=== PATIENT | female | born 1970 | race Caucasian/White ===

== ENCOUNTER 2018-04-01 08:51 | Inpatient (IN) | payer OTHER ==
[~2018-04-01] VITALS: Ht 157.4 cm; Wt 54.5 kg
--- NOTE | ~2018-04-01 | CON ---
[place], [place] REPORT OF CONSULTATION NAME: GOMEZ HOFFMAN UNIT #: [id number] ROOM: 404 DOCTOR: MATHEUS PACHECO MD BIRTHDATE: [birth year] DOS: 04/02/2018 REASON FOR CONSULTATION: Near syncope. HISTORY OF PRESENT ILLNESS: The patient is a 47-year-old woman who was seen today 04/02/2018 at her bedside at [facility]. She presented overnight with a near syncopal episode. This is the second time that this is happening in a 2 year span. The first episode occurred when she got out of bed too fast. She felt lightheaded and was able to call to her who was able to catch her before she fell. She recovered quickly after that and did not have any further symptoms. She was otherwise well until this morning. 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 She states that the area was not particularly hot and she had had plenty of fluid earlier in the day, but had not eaten much. She began to feel sweaty and weak. She sat down and her symptoms did improve; however, because of her lightheadedness, she was sent to the hospital and admitted for further assessment. She denies ever truly losing consciousness, although she states that her vision did get dark before she sat down. She did not injure herself in either episode. She specifically denied any chest pain, palpitations, nausea or dyspnea associated with these episodes. The patient's only medication is an albuterol inhaler, which she uses on occasion for asthma. She denies the use of any [id number]-sus-ylaljqd medications supplements, etc. PAST MEDICAL HISTORY: Includes 1. Asthma. 2. Two episodes of near syncope in a 2 year span. MEDICATIONS PRIOR TO ADMISSION: Albuterol, which she uses p.r.n. ALLERGIES: She lists allergies to PENICILLIN, AMOXICILLIN, AUGMENTIN, all of which cause swelling. The AUGMENTIN caused anaphylaxis. PEANUTS cause anaphylaxis. REVIEW OF SYSTEMS: The patient denies diplopia or loss of vision. She did have the lightheaded spell prior to admission. She denies focal weakness. She denies nausea or vomiting. She denies fevers, chills or recent weight change. She denies any change in her appetite. She denies any hemoptysis or hematemesis. She denies any recent weight change. She denies change in her bowel or bladder habits. She denies blood in her stools or urine or from any other site. She denies heat or cold intolerance. She denies polyuria or polydipsia. She denies any peripheral edema or change in her exercise capacity. She denies skin rashes. Remainder of the review of systems is negative except as noted above. FAMILY HISTORY: The patient's parents are still alive. There is no family history of diabetes, hypertension or early coronary disease. SOCIAL HISTORY: The patient is and lives with her . 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 She denies cigarette abuse or alcohol use. PHYSICAL EXAMINATION: GENERAL: The patient is a slender white female who is awake, alert and oriented. VITAL SIGNS: Pulse is 57 and regular, blood pressure is 119/77. She is afebrile. She weighs 54.5 kg and has a body mass index of 22. HEENT: Normocephalic, atraumatic. Extraocular muscles are intact. Sclerae are clear. Pupils are equal, round and react to light. The oral mucosa is moist. Tongue is midline. NECK: Supple. She has no jugular distention. Carotids are full without bruits. She has no neck or supraclavicular masses. RESPIRATORY: Respirations are unlabored. Her chest is clear to auscultation and percussion. She has no presacral edema or chest wall tenderness. CARDIOVASCULAR: Her heart has a regular rhythm without murmurs, rubs or gallops. The PMI is not displaced. There is no precordial heave, lift or thrill. ABDOMEN: Soft and normally active without masses, organomegaly or bruits. EXTREMITIES: Showed no edema. Peripheral pulses are easily palpated in the feet. She had no palpable cords in her legs. She had no Homans sign. LABORATORY DATA: I reviewed her electrocardiogram, which showed sinus rhythm and was a normal tracing. I reviewed her monitor strips, which were also normal. Hemoglobin is 12.7, hematocrit 38.7. There are 8300 white cells, platelets 280,000. Sodium is 138, potassium 4.2, chloride 105, CO2 24, BUN 10, creatinine 0.91. Troponin was negative. IMPRESSION AND PLAN: Near syncope. This is most likely a vasovagal event. She has had only 2 episodes in 2 years and, therefore, I would not proceed with an extensive workup at this time. We will check orthostatic vital signs and obtain an echocardiogram. If all of those are unremarkable, then I would not do any further workup at this time. If she has more frequent episodes, we will talk to her about the 30-day event recorder and probable tilt table study, but for now if her inpatient workup looks good, then I would not do anything further aside from encourage her to hydrate well and perhaps add a little salt to her diet. We thank Dr. Mcgill for asking our advice regarding her assessment. [place], [place] REPORT OF CONSULTATION NAME: GOMEZ HOFFMAN UNIT #: [id number] ROOM: 404 DOCTOR: MATHEUS PACHECO MD BIRTHDATE: [birth year] MATHEUS PACHECO MD CM:CONSTR:REPORT OF CONSULTATION 1212 04/03/18 1032 interface
--- NOTE | ~2018-04-01 | WRIGHTHP ---
[place], [place] PATIENT HISTORY AND PHYSICAL EXAM NAME[id number] UNIT #: [id number] ROOM: 404 DOCTOR: ANNMARIE MORGAN MD BIRTHDATE: [birth year] DOS: 04/01/2018 HISTORY OF PRESENT ILLNESS: The patient is a 47-year-old female with no past medical issues or history except for mild bronchial asthma, presented to the Emergency Department with a second episode of loss of consciousness in the last 2 years. The patient says that she was at work and she blacked out without any warnings, but then she woke up asymptomatic. Although she is telling me that she was asymptomatic, but apparently in emergency record, it stated that she had become dizzy and chilled and lightheaded while working. As a precaution, the Emergency Department physician recommended that the patient should be monitored for her safety and because she was symptomatic. After admission, the patient is completely asymptomatic now and she remained in normal sinus rhythm on the vehicle monitor technician with a heart rate ranging between 60 beats per minute to 81 beats per minute. REVIEW OF SYSTEMS: CARDIOVASCULAR SYSTEM: No chest pains, no palpitation. GASTROINTESTINAL: No nausea, vomiting, diarrhea, or constipation. RESPIRATORY: No shortness of breath or wheezing. The patient does have a history of bronchial asthma. FAMILY HISTORY: Noncontributory. SOCIAL HISTORY: Denies smoking cigarettes, alcohol and drug abuse. MEDICATIONS: Albuterol inhaler as needed. FAMILY HISTORY: Noncontributory. ALLERGIES: Known allergies to PENICILLIN, PEANUT. PHYSICAL EXAMINATION: GENERAL: Alert and oriented x 3. VITAL SIGNS: Blood pressure 119/77, heart rate of 60 beats per minute, breathing 18 times per minute, temperature 98 degrees Fahrenheit. HEENT AND NECK: Extraocular movements are intact. Sclerae are anicteric. Oral mucosa is moist and clean. No obvious facial weakness. Neck is supple without any lymphadenopathy. No thyromegaly. No JVD. No carotid arterial bruits. LUNGS: Clear to auscultation. No wheezing. No rhonchi. CARDIOVASCULAR SYSTEM: Heart rate is regular in rate and rhythm. S1 and S2 normally audible. No significant murmur or any other abnormal cardiac sounds. ABDOMEN: Soft, nontender. No obvious organomegaly. Bowel sounds are present. No obvious herniation. EXTREMITIES: Without significant cyanosis or edema. Warm to touch. CENTRAL NERVOUS SYSTEM: Alert and oriented x 3. Cranial nerves II-XII are intact. Speech is normal. The patient is able to move all extremities. Normal muscle strength. Deep tendon reflexes are equal on both sides. Plantars were downgoing. LABORATORY DATA: Chest x-ray normal. Normal serum electrolytes except for [place], [place] PATIENT HISTORY AND PHYSICAL EXAM NAME: GOMEZ HOFFMAN UNIT #: [id number] ROOM: [facility] DOCTOR: ANNMARIE MORGAN MD BIRTHDATE: [birth year] blood sugar 108, magnesium at 2.3. Normal CBC. IMPRESSION AND PLAN: 1. The patient with syncopal episode, probably vasovagal, her second episode in 2 years without any injuries. The patient does not remember it now, but in the Emergency Room, she told the emergency physician that she was dizzy and lightheaded and not feeling well, but now she thinks that she was asymptomatic when she blacked out for a short time. The patient has been in normal sinus rhythm during her stay at the hospital and after getting an opinion from the content assistant, she will be discharged to home to follow up with her primary care physician, Dr. Noah Abreu this week. 2. History of bronchial asthma, asthmatoid wheezing which is asymptomatic presently and she uses albuterol inhaler as needed, which has been continued. 3. No neurological deficits or symptoms. I will check carotid arterial Dopplers. ANNMARIE MORGAN MD CM:HISPHYS:PATIENT HISTORY AND PHYSICAL EXAMINATION [id number] ANNMARIE MORGAN MD 04/02/18 1110 interface
[2018-04-01 08:56] VITALS: BP 136/83
[2018-04-01] MEDS ORDERED: PROVENTIL HFA6.7 GM INH (08:59)
[2018-04-01 09:29] LABS: BASO # 0.1 10*3/uL (0.0-0.1); BASO % 1.2 % (0.0-1.0); EOS # 0.2 10*3/uL (0.0-0.4); EOS % 2.9 % (1.0-4.0); HEMATOCRIT 38.7 % (37.0-47.0); HEMOGLOBIN 12.7 g/dl (12.0-16.0); LYMPH % 11.6 % (27.0-41.0); MEAN CELL VOLUME 91.7 fl (81.0-99.0); MEAN CORPUSCULAR HGB 30.1 pg (27.0-31.0); MEAN CORPUSCULAR HGB CONC 32.8 g/dl (33.0-37.0); MONO # 0.9 10*3/uL (0.1-1.0); MONO % 11.2 % (3.0-9.0); NEUT # 6.1 10*3/uL (2.3-7.9); NEUT % 72.9 % (47.0-73.0); PLATELET COUNT AUTOMATED 280 10*3/uL (130-400); RED BLOOD COUNT 4.22 10*6/uL (4.10-5.10); WHITE BLOOD COUNT 8.3 10*3/uL (4.8-10.8)
[2018-04-01 09:47] LABS: ALBUMIN 4.5 gm/dl (3.1-4.5); ALKALINE PHOSPHATASE 57 U/L (45-117); BUN 10 mg/dl (7-24); CHLORIDE 105 mmol/L (98-107); CREATININE 0.91 mg/dL (0.55-1.02); LIPASE 76 U/L (73-393); POTASSIUM 4.2 mmol/L (3.5-5.1); SGOT/AST 9 IU/L (3-35); SGPT/ALT 14 U/L (12-78); SODIUM 138 mmol/L (136-145); TOTAL PROTEIN 8.2 gm/dL (6.4-8.2)
[2018-04-01 09:48] LABS: TROPONIN I < 0.015 ng/ml (<0.045)
[2018-04-01 10:06] VITALS: BP 128/70
[2018-04-01 10:35] VITALS: BP 128/77
[2018-04-01 12:00] VITALS: BP 122/79
[2018-04-01 16:00] VITALS: BP 116/67
[2018-04-01 20:00] VITALS: BP 126/67; BP 97/75
[2018-04-02] VITALS: BP 100/46; BP 129/75
[2018-04-02 08:00] VITALS: BP 119/77
[2018-04-02 12:00] VITALS: BP 114/67
== END 2018-04-02 16:29 | disposition home or self-care (01) | DRG 312 ==
LOC: ED 08:51 → 4E 10:04 → EDHOLD 10:04 → 4E 10:14
PROVIDERS: Nurse Practitioner Family
DX: R55 Syncope and collapse (principal); J45.909 Unspecified asthma, uncomplicated; Z88.0 Allergy status to penicillin; Z88.1 Allergy status to other antibiotic agents; Z91.018 Allergy to other foods; Z88.8 Allergy status to other drugs, medicaments and biological substances; Z79.899 Other long term (current) drug therapy

== ENCOUNTER → 2018-04-03 | Outpatient (CLI) | payer OTHER ==
[~2018-04-03] MED LIST: PROVENTIL HFA6.7 GM INH
[2018-04-03 14:47] LABS: HEMOGLOBIN 13.3 g/dl (12.0-16.0); MEAN CELL VOLUME 92.8 fl (81.0-99.0); MEAN CORPUSCULAR HGB 30.1 pg (27.0-31.0); MEAN CORPUSCULAR HGB CONC 32.4 g/dl (33.0-37.0); RED BLOOD COUNT 4.42 10*6/uL (4.10-5.10); RED CELL DISTRI WIDTH 13.2 % (0-14.5); WHITE BLOOD COUNT 7.6 10*3/uL (4.8-10.8)
[2018-04-03 15:16] LABS: ALBUMIN 4.6 gm/dl (3.1-4.5); ALKALINE PHOSPHATASE 58 U/L (45-117); BUN 14 mg/dl (7-24); CHLORIDE 107 mmol/L (98-107); CHOLESTEROL 173 mg/dL (<200); CREATININE 0.83 mg/dL (0.55-1.02); HDL CHOLESTEROL 61 mg/dl (40-60); LDL CHOLESTEROL 100 mg/dL (9-159); POTASSIUM 4.2 mmol/L (3.5-5.1); SGOT/AST 15 IU/L (3-35); SGPT/ALT 14 U/L (12-78); SODIUM 140 mmol/L (136-145); TOTAL PROTEIN 8.3 gm/dL (6.4-8.2); TRIGLYCERIDES 59 mg/dl (<150); VLDL CHOLESTEROL 12 mg/dL (6-40)
== END | disposition home or self-care (01) ==
LOC: LAB 14:33
PROVIDERS: Family Medicine
DX: E78.00 Pure hypercholesterolemia, unspecified (principal); E55.9 Vitamin D deficiency, unspecified; R06.02 Shortness of breath

== ENCOUNTER → 2018-04-05 | Outpatient (CLI) | payer OTHER | END | disposition home or self-care (01) | LOC: CARD 08:18 | DX: R55 Syncope and collapse (principal) ==

== ENCOUNTER → 2018-06-18 | Outpatient (CLI) | payer OTHER ==
[2018-06-19 08:09] LABS: RHEUMATOID ARTHRITIS FACTOR 10.6 IU/mL (0.0-13.9)
[2018-06-19 12:04] LABS: ANTI-DSDNA ANTIBODIES 096339 6 IU/mL (0-9)
== END | disposition home or self-care (01) ==
LOC: LAB 15:19
PROVIDERS: Family Medicine
DX: M79.1 Myalgia (principal); M25.50 Pain in unspecified joint